=== PATIENT | female | born 1970 | race Caucasian/White ===

== ENCOUNTER 2023-01-08 09:14 | Emergency (ER) | payer OTHER ==
[~2023-01-08] VITALS: Ht 165.1 cm; Wt 108.2 kg
[2023-01-08] MEDS ORDERED: INSLAN SQ (09:19)
[2023-01-08] MEDS ORDERED: ASPI-989 PO (09:19)
[2023-01-08] MEDS ORDERED: METF-1211 PO (09:19)
[2023-01-08 11:30] VITALS: BP 135/86
== END 2023-01-08 11:38 | disposition home or self-care (01) ==
LOC: EMS 09:14
DX: S01.311A Laceration without foreign body of right ear, initial encounter (principal); E11.9 Type 2 diabetes mellitus without complications; E78.00 Pure hypercholesterolemia, unspecified; I11.9 Hypertensive heart disease without heart failure; Z98.890 Other specified postprocedural states; X58.XXXA Exposure to other specified factors, initial encounter; Y93.89 Activity, other specified; Y92.89 Other specified places as the place of occurrence of the external cause; Y99.8 Other external cause status
CPT/HCPCS: 99281; Z7502